=== PATIENT | male | born 1970 | race Caucasian/White ===

== ENCOUNTER 2020-11-13 13:12 | Emergency (ER) | payer SELFPAY ==
[~2020-11-13] VITALS: Ht 182.9 cm; Wt 82.0 kg
[2020-11-13] MEDS ORDERED: FOLIC ACID 1 MG, THIAMINE HCL 100 MG, MVI, ADULT NO.1 10 ML in DEXTROSE 5% WATER 1,000 ML IV ONE (13:30)
[2020-11-13] MEDS ORDERED: LORAZEPAM 2MG/ML CPJ IM ONE (13:45)
[2020-11-13] MEDS ORDERED: OLANZAPINE 10 MG/VIAL IM ONE (13:45)
[2020-11-13 15:02] LABS: BASOPHILS % 0.6 % (0.0-2.0); HEMATOCRIT. 43.2 % (42.0-52.0); HEMOGLOBIN. 14.9 g/dL (14.0-18.0); LYMPHOCYTES % 14.6 % (20.0-50.0); MEAN CORPUSCULAR HEMOGLOBIN 30.6 pg (28.0-32.0); MEAN CORPUSCULAR VOLUME 88.8 fL (80.0-94.0); MEAN PLATELET VOLUME 9.1 fl (7.4-10.4); MONOCYTES % 7.5 % (2.0-8.0); NEUTROPHILS % 75.3 % (40.0-76.0); PLATELET 278 x1000/uL (130-400); RED BLOOD CELL COUNT 4.86 mill/uL (4.7-6.1); RED CELL DISTRIBUTION WIDTH 13.4 % (11.6-14.6)
[2020-11-13 15:07] LABS: CHLORIDE 107 mEq/L (98-107)
[2020-11-13 15:13] LABS: ETHANOL BLOOD < 10 mg/dL
[2020-11-13 22:00] VITALS: BP 125/84
== END 2020-11-13 23:15 | disposition home or self-care (01) ==
LOC: ER 13:24
DX: R41.82 Altered mental status, unspecified (principal)
CPT/HCPCS: 36415; 70450; 80053; 80307; 80320; 80329; 85025; 96365; 96372; 99285; J2060; J3411; J3490; J7070; G0480